=== PATIENT | male | born 1980 | race African-American/Black ===

== ENCOUNTER 2023-09-14 17:37 | Emergency (ER) | payer MEDICAID ==
[~2023-09-14] VITALS: Ht 190.5 cm; Wt 81.6 kg
[2023-09-14 17:51] VITALS: O2SAT 97
[2023-09-14] MEDS ORDERED: CLAR10 MT (20:50)
[2023-09-14] MEDS ORDERED: P20 MT (20:50)
[2023-09-14] MEDS ORDERED: FLUT9.9S BOTHNSTRLS (20:50)
[2023-09-14 21:07] VITALS: BP 138/79; PULSE 81; RESP 18; TEMP 97.6
== END 2023-09-14 21:12 | disposition home or self-care (01) ==
LOC: ER 17:37
DX: J30.9 Allergic rhinitis, unspecified (principal)
CPT/HCPCS: 99281; 99283

== ENCOUNTER 2025-02-06 19:04 | Emergency (ER) | payer MEDICAID ==
[~2025-02-06] VITALS: Ht 185.4 cm; Wt 100.0 kg
[~2025-02-06 19:04] MED LIST: CLAR10 MT; FLUT9.9S BOTHNSTRLS; P20 MT
[2025-02-06 19:22] VITALS: O2SAT 99
[2025-02-06] MEDS ORDERED: PSEU120T56 MT (21:10)
[2025-02-06 21:43] VITALS: BP 131/84; PULSE 72; RESP 16; TEMP 36.8; O2SAT 99
== END 2025-02-06 21:43 | disposition home or self-care (01) ==
LOC: ER 19:04
DX: B34.9 Viral infection, unspecified (principal); H91.90 Unspecified hearing loss, unspecified ear; Z79.899 Other long term (current) drug therapy
CPT/HCPCS: 71045; 99283